=== PATIENT | male | born 1945 | race Caucasian/White ===

== ENCOUNTER 2024-01-16 22:34 | Emergency (ER) | payer OTHER, MEDICARE ==
[2024-01-16] MEDS ORDERED: methocarbamoL 750 MG TAB ONE (23:29)
[2024-01-16] MEDS ORDERED: ONDANSETRON 4 MG/2 ML VIAL ONE (23:29)
[2024-01-16] MEDS ORDERED: TDAP (DIPHTH,PERTUSS(ACELL),TET VAC) 0.5 ML VIAL IMVAC ONE (23:30)
[2024-01-16] MEDS ORDERED: MORPHINE 4 MG/ML SYR ONE (23:30)
[2024-01-17] MEDS ORDERED: MORPHINE 2 MG/ML SYR ONE (01:30)
[2024-01-17 01:40] LABS: Absolute Eosinophils 0.1 K/uL (0-0.5); Absolute Lymphocytes (CBC) 1.4 K/uL (0.7-4.9); Absolute Monocytes 1.1 K/uL (0.1-1.3); Absolute Neutrophil 13.3 K/uL (1.8-8.0); Basophils % 0.3 % (0-1.3); Eosinophils % 0.5 % (0-4.4); Hematocrit 52.1 % (39.6-49.0); Hemoglobin 16.7 g/dL (13.6-17.9); Lymphocytes % 8.7 % (15.3-44.8); MCH 30.6 pg (27.0-35.0); MCHC 32.1 g/dL (32.0-36.0); MCV 95.1 fL (80-100); MPV 9.5 fL (7.6-11.3); Monocytes % 7.1 % (3.3-12.3); Neutrophils % 83.4 % (41.7-73.7); Platelets 229 thou/uL (152-406); RBC Red Blood Cell Count 5.48 M/uL (4.33-5.43); Red Cell Distribution Width 14.3 % (12.1-15.2)
[2024-01-17 01:45] LABS: PT Prothrombin Time 13.1 SECONDS (9.4-12.5); Protime INR 1.18
[2024-01-17 02:00] LABS: Albumin 3.6 g/dL (3.4-5.0); Albumin/Globulin Ratio 0.7 (1.1-1.8); Anion Gap 10.2 mEq/L (5.0-15.0); Bilirubin Direct 0.2 mg/dL (0-0.2); Bilirubin Indirect, Calculated 0.5 mg/dL (0.2-0.8); Bilirubin Total 0.7 mg/dL (0.2-1.0); Globulin 5.1 g/dL (2.3-3.5); Magnesium 2.1 mg/dL (1.6-2.4); Potassium 4.2 mEq/L (3.5-5.1); Protein, Total 8.7 g/dL (6.4-8.2); Troponin High Sensitivity 17.3 pg/mL (<58.9)
--- NOTE | 2024-01-17 02:05 | ER ---
Nurse's Notes [facility] Name: Andrew Head Age: 78 yrs Sex: Male : 1945 Arrival Date: 01/16/2024 Time: 22:34 Bed 7 Private MD: Diagnosis: Acute nondisplaced fracture greater trochanter of the right femur, acute fall at home. Presentation: 01/15 22:36 Chief complaint: Patient states: I loss my balance in the bathroom and fell. EMS bm8 states: pt stated that he hit his head with no loc, right elbow skin tear, pain in right hip femur area, and fresh bruising to right knee. Coronavirus screen: At this time, the client does not indicate any symptoms associated with coronavirus-19. Ebola Screen: Patient negative for fever greater than or equal to 101.5 degrees Fahrenheit, and additional compatible Ebola Virus Disease symptoms Patient denies exposure to infectious person. Patient denies travel to an Ebola-affected area in the 21 days before illness onset. No symptoms or risks identified at this time. Initial Sepsis Screen: Does the patient meet any 2 criteria? No. Patient's initial sepsis screen is negative. Does the patient have a suspected source of infection? No. Patient's initial sepsis screen is negative. Risk Assessment: Do you want to hurt yourself or someone else? Patient reports no desire to harm self or others. Onset of symptoms was January 16, 2024 at 21:15. 22:36 Method Of Arrival: EMS: [facility] bm8 22:36 Acuity: GLORY 3 bm8 Triage Assessment: 22:38 General: Appears in no apparent distress. uncomfortable, Behavior is calm, cooperative, bm8 appropriate for age. Pain: Complains of pain in right arm and right leg Pain does not radiate. Pain currently is 8 out of 10 on a pain scale. Quality of pain is described as aching, crampy, Pain began 1 hour ago. EENT: No signs and/or symptoms were reported regarding the EENT system. Neuro: No deficits noted. Level of Consciousness is awake, alert, obeys commands, Oriented to person, place, time, situation, Appropriate for age. Cardiovascular: Denies chest pain, lightheadedness, shortness of breath, Heart tones S1 S2 present Capillary refill < 3 seconds Patient's skin is warm and dry. Respiratory: No deficits noted. Airway is patent Respiratory effort is even, unlabored, Respiratory pattern is regular, symmetrical, Breath sounds are clear bilaterally. GI: No signs and/or symptoms were reported involving the gastrointestinal system. : No signs and/or symptoms were reported regarding the genitourinary system. Derm: Wound noted right antecubital area Wound is skin tear. Musculoskeletal: Capillary refill < 3 seconds, in bilateral fingers. toes. Range of motion: limited in right hip Reports pain in medial aspect of right thigh and right quadriceps. Historical: - Allergies: 22:38 No Known Allergies; bm8 - Home Meds: 22:38 Eliquis oral [Active]; bm8 - PMHx: 22:38 diabetes mellitus; falls; HEART STENT; Hypercholesterolemia; Hypertensive disorder; bm8 Myocardial infarction; TIA; - PSHx: 22:38 right shoulder sx (TIA); heart stents (TIA); bm8 - Immunization history:: Adult Immunizations unknown, Adult Immunizations. - Infectious Disease History:: Denies. - Social history:: Smoking status: Patient denies any tobacco usage or history of. - Family history:: not pertinent. Screenin:42 [facility] ED Fall Risk Assessment (Adult) History of falling in the last 3 months, bm8 including since admission Yes- single mechanical fall (1 pt) Confusion or Disorientation No (0 pts) Intoxicated or Sedated No (0 pts) Impaired Gait No (0 pts) Mobility Assist Device Used No (0 pt) Altered Elimination No (0 pt) Score/Fall Risk Level 0 - 2 = Low Risk Oriented to surroundings, Maintained a safe environment, Educated pt \T\ family on fall prevention, incl call for assistance when getting out of bed, Assessed \T\ reinforced patient's understanding of fall precautions, Hourly rounding (assess needs \T\ fall precautionary measures) done, Used ambulatory aids as needed (educated on \T\ assisted with), Used gait belt as appropriate. Abuse screen: Denies threats or abuse. Nutritional screening: No deficits noted. Tuberculosis screening: No symptoms or risk factors identified. Assessment: 22:42 Reassessment: see triage note. bm8 23:43 Reassessment: Patient appears in no apparent distress at this time. No changes from bm8 previously documented assessment. Patient and/or family updated on plan of care and expected duration. Pain level reassessed. Patient is alert, oriented x 3, equal unlabored respirations, skin warm/dry/pink. 01/16 01:48 General: Appears in no apparent distress. comfortable, Behavior is calm, cooperative, bm8 appropriate for age. Pain: Complains of pain in right leg Pain currently is 4 out of 10 on a pain scale. Quality of pain is described as aching, crampy. Neuro: Level of Consciousness is awake, alert, obeys commands, Oriented to person, place, time, situation, Appropriate for age. Cardiovascular: Denies chest pain, Capillary refill < 3 seconds Patient's skin is warm and dry. Respiratory: Airway is patent Respiratory effort is even, unlabored, Respiratory pattern is regular, symmetrical, Breath sounds are clear bilaterally. GI: No signs and/or symptoms were reported involving the gastrointestinal system. : No signs and/or symptoms were reported regarding the genitourinary system. EENT: No signs and/or symptoms were reported regarding the EENT system. Musculoskeletal: Reports pain in right leg. 04:35 General: report given to JONATHAN WORTHY. bm8 Vital Signs: 01/15 22:36 BP 145 / 95; Pulse 75; Resp 18; Temp 97.7; Pulse Ox 95% ; Weight 90.26 kg; Height 6 ft. bm8 0 in. ; Pain 8/10; 23:52 BP 141 / 70; Pulse 76; Resp 17; Temp 98; Pulse Ox 95% ; Pain 5/10; bm8 01/16 01:48 BP 124 / 74; Pulse 85; Resp 17; Temp 98; Pulse Ox 96% on 2 lpm NC; Pain 4/10; bm8 02:30 BP 129 / 78; Pulse 87; Resp 18; Pulse Ox 95% ; cp4 03:30 BP 132 / 76; Pulse 87; Resp 18; Pulse Ox 96% ; cp4 03:30 BP 128 / 75; Pulse 90; Resp 17; Temp 98; Pulse Ox 96% ; cp4 04:31 BP 128 / 75; Pulse 90; Resp 17; Temp 98; Pulse Ox 96% ; cp4 01/15 22:36 Body Mass Index 26.99 (90.26 kg, 182.88 cm) bm8 01/15 22:36 Pain Scale: Adult bm8 23:52 Pain Scale: Adult bm8 01/16 01:48 Pain Scale: Adult bm8 Frannie Coma Score: 01/15 22:42 Eye Response: spontaneous(4). Motor Response: obeys commands(6). Verbal Response: bm8 oriented(5). Total: 15. 23:43 Eye Response: spontaneous(4). Motor Response: obeys commands(6). Verbal Response: bm8 oriented(5). Total: 15. 23:52 Eye Response: spontaneous(4). Motor Response: obeys commands(6). Verbal Response: bm8 oriented(5). Total: 15. 01/16 01:48 Eye Response: spontaneous(4). Motor Response: obeys commands(6). Verbal Response: bm8 oriented(5). Total: 15. 01:53 Eye Response: spontaneous(4). Motor Response: obeys commands(6). Verbal Response: sp4 oriented(5). Total: 15. ED Course: 01/15 22:34 Patient arrived in ED. cp4 22:36 Zeferino Benjamin, RN is Primary Nurse. bm8 22:38 Triage completed. bm8 22:38 Arm band placed on right wrist. bm8 22:42 Paul Santamaria MD is Attending Physician. sp4 22:42 Patient has correct armband on for positive identification. Call light in reach. Side bm8 rails up X2. Client placed on continuous cardiac and pulse oximetry monitoring. NIBP monitoring applied. Pulse ox on. NIBP on. Door closed. Noise minimized. Warm blanket given. Pillow given. Verbal reassurance given. Head of bed elevated. 22:42 No provider procedures requiring assistance completed. bm8 23:40 Inserted saline lock: 22 gauge in left antecubital area, using aseptic technique. Blood bm8 collected. Flushed with 10 mL NS. Wound care: to skin tear located on right antecubital area and right elbow was cleaned with soap and water, Patient tolerated well. wrapped with kerlix and secured with coban. 01/16 00:02 CT Pelvis wo Cont In Process Unspecified. EDMS 00:19 Elbow Right 3 View XRAY In Process Unspecified. EDMS 00:19 Femur Right XRAY In Process Unspecified. EDMS 01:24 [facility] 01:53 XRAY Chest (1 view) In Process Unspecified. EDMS 04:30 Provided Education on: transfer. cp4 04:30 Patient transferred, IV remains in place. cp4 04:39 pt was accepted to [facility] room 935. Admin approval given by Sydney Del Rosario f \T\[id number]. Accepting Danielle Coffey \T\[id number]. number for nurse to nurse report [phone]. [facility] to transfer pt. Administered Medications: 01/15 23:33 Drug: Boostrix Tdap IM 0.5 ml IM once; as a single dose Route: IM; Site: left deltoid; 8 01/16 00:00 Follow up: Response: No adverse reaction 4 01/15 23:39 Drug: morphine IVP or IV 4 mg IVP once over 4 mins Route: IVP; Infused Over: 4 mins; bm8 Site: left antecubital; 01/16 00:00 Follow up: Response: No adverse reaction; Pain is decreased [facility] 01/15 23:39 Drug: Ondansetron IVP 4 mg IVP once; over 2 minutes Route: IVP; Site: left antecubital; 8 01/16 00:00 Follow up: Response: No adverse reaction 4 01/15 23:39 Drug: Methocarbamol PO 750 mg PO once Route: PO; 8 01/16 00:00 Follow up: Response: No adverse reaction 4 01:33 Drug: morphine IVP or IV 2 mg IVP once over 4 mins Route: IVP; Infused Over: 4 mins; cp4 Site: left antecubital; 01:51 Follow up: Response: No adverse reaction 8 02:31 Drug: NS 0.9% IV 1000 ml IV at 125 ml/hr continuous Route: IV; Rate: 125 ml/hr; Site: cp4 left antecubital; 04:29 Follow up: IV Status: Infusion continued upon transfer 4 04:24 Drug: morphine IVP or IV 4 mg IVP once over 4 mins Route: IVP; Infused Over: 4 mins; jj7 Site: left antecubital; 04:29 Follow up: Response: No adverse reaction 4 04:24 Drug: Ondansetron IVP 4 mg IVP once; over 2 minutes Route: IVP; Site: left antecubital; jj7 04:29 Follow up: Response: No adverse reaction cp4 Medication: 01/15 22:42 VIS not applicable for this client. bm8 Outcome: 01/16 02:04 ER care complete, transfer ordered by . sp4 04:30 Transferred by ground EMS to [facility], Transfer form completed. cp4 X-rays sent w/ patient. 04:30 Condition: stable 04:30 Instructed on the need for transfer, 04:32 Patient left the ED. cp4 Signatures: Dispatcher [employer] Dc Israel RN RN jj7 Paul Santamaria MD MD sp4 Angelina Martínez cp4 Margie Alarcon [facility] Zeferino Benjamin, RN RN bm8 Corrections: (The following items were deleted from the chart) 01/15 23:53 23:43 BP 128 / 96; Pulse 67bpm; Resp 18bpm; Pulse Ox 95%; Temp 98F; Pain 8/10, Adult; bm8 bm8
--- NOTE | 2024-01-17 02:05 | EDPHYS ---
Physician Documentation [facility] Name: Andrew Head Age: 78 yrs Sex: Male : 1945 Arrival Date: 01/16/2024 Time: 22:34 Bed 7 Private MD: ED Physician Paul Santamaria HPI: 01/15 22:42 This 78 yrs old Black Male presents to ER via EMS with complaints of Hip Pain. sp4 01/16 01:53 Sonido presents with acute fall at home associated with moderate to severe right hip sp4 pain. Patient could not get up to walk at home and ambulance was called . Patient at this time complains of moderate severe right hip pain also right elbow pain associated with right elbow abrasion. . 01:59 Patient's medications include daily fiber, Eliquis 5 mg twice daily, zolpidem 12 in the sp4 evening, bupropion 150 in the morning, finasteride 5 mg in the morning, sertraline 100 mg in the morning, folic acid 1 mg in the morning, pioglitazone 30 mg in the morning, lamotrigine 100 mg in the morning, duloxetine 60 mg in the morning, atorvastatin 40 mg in the evening, memantine 100 mg in the morning, aripiprazole 5 mg twice a day.. Historical: - Allergies: 01/15 22:38 No Known Allergies; bm8 - Home Meds: 22:38 Eliquis oral [Active]; bm8 - PMHx: 22:38 diabetes mellitus; falls; HEART STENT; Hypercholesterolemia; Hypertensive disorder; bm8 Myocardial infarction; TIA; - PSHx: 22:38 right shoulder sx (TIA); heart stents (TIA); bm8 - Immunization history:: Adult Immunizations unknown, Adult Immunizations. - Infectious Disease History:: Denies. - Social history:: Smoking status: Patient denies any tobacco usage or history of. - Family history:: not pertinent. ROS: 01/16 01:53 Constitutional: Negative for fever, chills, and weight loss, for acute fall , positive sp4 for acute right hip pain, positive for right elbow contusion, positive for right elbow skin tear All other systems are negative, Exam: 01:53 Constitutional: This is a well developed, well nourished patient who is awake, alert, sp4 and in no acute distress. Head/Face: Normocephalic, atraumatic. Eyes: Pupils equal round and reactive to light, extra-ocular motions intact. Lids and lashes normal. Conjunctiva and sclera are not injected. Cornea within normal limits. Periorbital areas with no swelling, redness, or edema. ENT: Nares patent. No nasal discharge, no septal abnormalities noted. Tympanic membranes are normal and external auditory canals are clear. Oropharynx with no redness, swelling, or masses, exudates, or evidence of obstruction, uvula midline. Mucous membranes moist. Neck: Trachea midline, no thyromegaly or masses palpated, and no cervical lymphadenopathy. Supple, full range of motion without nuchal rigidity, or vertebral point tenderness. Chest/axilla: Normal chest wall appearance and motion. Nontender with no deformity. No lesions are appreciated. Cardiovascular: Regular rate and rhythm with a normal S1 and S2. No gallops, murmurs, or rubs. Normal PMI, no JVD. No pulse deficits. Respiratory: Lungs have equal breath sounds bilaterally, clear to auscultation and percussion. No rales, rhonchi or wheezes noted. No increased work of breathing, no retractions or nasal flaring. Abdomen/GI: Soft, with normal bowel sounds. No distension or tympany. No guarding or rebound. No evidence of tenderness throughout. Back: No spinal tenderness. No costovertebral tenderness. Skin: Warm, dry with normal turgor. Normal color with no rashes, no lesions, and no evidence of cellulitis. MS/ Extremity: Pulses equal, no cyanosis. Neurovascular intact. Full, normal range of motion. Moderate to severe tenderness right lateral proximal hip, no deformity, patient not able to stand up. Reports moderate to severe pain on attempt to stand. Neuro: Awake and alert, GCS 15, oriented to person, place, time, and situation. Cranial nerves II-XII grossly intact. Motor strength 5/5 in all extremities. Sensory grossly intact. Psych: Awake, alert, with orientation to person, place and time. Behavior, mood, and affect are within normal limits 01:53 ECG was reviewed by the Attending Physician. EKG 0 144 atrial fibrillation rate 86, sp4 right bundle branch block. Vital Signs: 01/15 22:36 BP 145 / 95; Pulse 75; Resp 18; Temp 97.7; Pulse Ox 95% ; Weight 90.26 kg; Height 6 ft. bm8 0 in. ; Pain 8/; 23:52 BP 141 / 70; Pulse 76; Resp 17; Temp 98; Pulse Ox 95% ; Pain 5/10; bm8 01/16 01:48 BP 124 / 74; Pulse 85; Resp 17; Temp 98; Pulse Ox 96% on 2 lpm NC; Pain 08/25; bm8 02:30 BP 129 / 78; Pulse 87; Resp 18; Pulse Ox 95% ; cp4 03:30 BP 132 / 76; Pulse 87; Resp 18; Pulse Ox 96% ; cp4 03:30 BP 128 / 75; Pulse 90; Resp 17; Temp 98; Pulse Ox 96% ; cp4 04:31 BP 128 / 75; Pulse 90; Resp 17; Temp 98; Pulse Ox 96% ; cp4 01/15 22:36 Body Mass Index 26.99 (90.26 kg, 182.88 cm) bm8 01/15 22:36 Pain Scale: Adult bm8 23:52 Pain Scale: Adult bm8 01/16 01:48 Pain Scale: Adult bm8 Caesar Coma Score: 01/15 22:42 Eye Response: spontaneous(4). Motor Response: obeys commands(6). Verbal Response: bm8 oriented(5). Total: 15. 23:43 Eye Response: spontaneous(4). Motor Response: obeys commands(6). Verbal Response: bm8 oriented(5). Total: 15. 23:52 Eye Response: spontaneous(4). Motor Response: obeys commands(6). Verbal Response: bm8 oriented(5). Total: 15. 01/16 01:48 Eye Response: spontaneous(4). Motor Response: obeys commands(6). Verbal Response: bm8 oriented(5). Total: 15. 01:53 Eye Response: spontaneous(4). Motor Response: obeys commands(6). Verbal Response: sp4 oriented(5). Total: 15. MDM: 01/15 22:48 Patient medically screened. sp4 01/16 00:54 ED course: EXAM DESCRIPTION: Pelvis Wo Cont CLINICAL HISTORY: 78 years Male Fall , sp4 right hip pain. COMPARISON: None. TECHNIQUE: Images were obtained in axial, coronal and sagittal planes. No contrast administration. This exam was performed according to our departmental dose-optimization program which includes use of Automated Exposure Control, adjustment of the mA and/or kV according to patient size and/or use of iterative reconstruction technique. FINDINGS: Satisfactory articulation femoral heads bilaterally with acetabular regions. Comminuted nondisplaced fractures greater trochanteric region on the right. No additional fractures seen. No fracture or superior or inferior pubic rami bilaterally. No fractures left hip. No sacral fractures bilaterally. Degenerative changes sacroiliac joints bilaterally. No coccygeal fractures seen. Appendix within normal limits. No abnormal fluid collections within the pelvis. Enlarged prostate gland. IMPRESSION: Comminuted nondisplaced fractures greater trochanteric region on the right. No additional fractures seen. . ED course: EXAM DESCRIPTION: Pelvis Wo Cont CLINICAL HISTORY: 78 years Male Fall , right hip pain. COMPARISON: None. TECHNIQUE: Images were obtained in axial, coronal and sagittal planes. No contrast administration. This exam was performed according to our departmental dose-optimization program which includes use of Automated Exposure Control, adjustment of the mA and/or kV according to patient size and/or use of iterative reconstruction technique. FINDINGS: Satisfactory articulation femoral heads bilaterally with acetabular regions. Comminuted nondisplaced fractures greater trochanteric region on the right. No additional fractures seen. No fracture or superior or inferior pubic rami bilaterally. No fractures left hip. No sacral fractures bilaterally. Degenerative changes sacroiliac joints bilaterally. No coccygeal fractures seen. Appendix within normal limits. No abnormal fluid collections within the pelvis. Enlarged prostate gland. IMPRESSION: Comminuted nondisplaced fractures greater trochanteric region on the right. No additional fractures seen. . ED course: EXAM DESCRIPTION: Elbow Right 3 View CLINICAL HISTORY: 78 years Male Fall, right side elbow pain. COMPARISON: None. TECHNIQUE: 3 view study of the right elbow were performed. FINDINGS: Calcific densities adjacent to posterior olecranon. Findings may represent chip fractures however tendon calcification could also have this appearance. Normal bony mineralization. No erosive or lytic lesions seen. No posterior fat pad sign or evidence for joint effusion. IMPRESSION: Calcific densities adjacent to posterior olecranon. Chip fractures versus tendon calcification could have this appearance. Correlation with point tenderness needed for further characterization. . ED course: PROCEDURE: FEMUR RADIOGRAPH TWO VIEWS TECHNIQUE: Right femur radiographs, AP and lateral views. HISTORY: , , right hip pain, Bed Name: 7 COMPARISONS: None . FINDINGS: Fracture (s) and/or Dislocation(s): Nondisplaced fracture through the greater trochanter. Soft tissues: Vascular calcifications. Bone mineralization: Normal . Foreign bodies: None . IMPRESSION: Nondisplaced fracture through the greater trochanter. . 01:58 Data reviewed: vital signs, nurses notes, lab test result(s), EKG, radiologic studies, sp4 CT scan, plain films. 02:00 Differential diagnosis: hip fracture, intertrochanteric fracture, femoral neck sp4 fracture, femoral shaft fracture, bursitis, arthritis, strain. Data reviewed: EMS record, old medical records. Consideration of Admission/Observation Escalation of care including admission/observation considered. Management of patient was discussed with the following: Manufacturing Plant Technician: Discussed with Dr. Stanford with orthopedic surgery at [facility] ED course: Was discussed with Orthopedist at [facility] and accepted for transfer. 01/16 01:23 Order name: Basic Metabolic Panel; Complete Time: 02:15 sp4 01/16 01:23 Order name: CBC with Diff; Complete Time: 02:15 sp4 01/16 01:23 Order name: LFT's; Complete Time: 02:15 sp4 01/16 01:23 Order name: Magnesium; Complete Time: 02:15 sp4 01/16 01:23 Order name: NT PRO-BNP; Complete Time: 02:15 sp01/16 01:23 Order name: PT-INR; Complete Time: 02:15 sp4 01/16 01:23 Order name: Troponin HS; Complete Time: 02:15 sp4 01/15 23:10 Order name: CT Pelvis wo Cont 4 01/15 23:10 Order name: Elbow Right 3 View XRAY 4 01/15 23:10 Order name: Femur Right XRAY sp4 01/16 01:23 Order name: XRAY Chest (1 view) sp4 01/15 23:10 Order name: Wound Care; Complete Time: 23:43 sp4 01/16 01:23 Order name: Cardiac monitoring; Complete Time: 01:51 sp4 01/16 01:23 Order name: EKG - Nurse/Tech; Complete Time: 01:51 sp4 01/16 01:23 Order name: IV Saline Lock; Complete Time: 01:51 sp4 01/16 01:23 Order name: Labs collected and sent; Complete Time: sp4 01/16 01:23 Order name: O2 Per Protocol; Complete Time: sp4 01/16 01:23 Order name: O2 Sat Monitoring; Complete Time: sp4 01/16 02:18 Order name: NPO; Complete Time: 02:24 sp4 EC:53 Rate is 86 beats/min. Rhythm is irregularly irregular, A fib. QRS Lynn is Normal. QRS sp4 interval is prolonged. QT interval is normal. No Q waves. T waves are Normal. No ST changes noted. Clinical impression: No evidence of ischemia. Interpreted by me. Reviewed by me. Administered Medications: 01/15 23:33 Drug: Boostrix Tdap IM 0.5 ml IM once; as a single dose Route: IM; Site: left deltoid; 8 01/16 00:00 Follow up: Response: No adverse reaction 4 01/15 23:39 Drug: morphine IVP or IV 4 mg IVP once over 4 mins Route: IVP; Infused Over: 4 mins; 8 Site: left antecubital; 01/16 00:00 Follow up: Response: No adverse reaction; Pain is decreased 4 01/15 23:39 Drug: Ondansetron IVP 4 mg IVP once; over 2 minutes Route: IVP; Site: left antecubital; 8 01/16 00:00 Follow up: Response: No adverse reaction 4 01/15 23:39 Drug: Methocarbamol PO 750 mg PO once Route: PO; 8 01/16 00:00 Follow up: Response: No adverse reaction [facility] 01:33 Drug: morphine IVP or IV 2 mg IVP once over 4 mins Route: IVP; Infused Over: 4 mins; cp4 Site: left antecubital; 01:51 Follow up: Response: No adverse reaction [facility] 02:31 Drug: NS 0.9% IV 1000 ml IV at 125 ml/hr continuous Route: IV; Rate: 125 ml/hr; Site: cp4 left antecubital; 04:29 Follow up: IV Status: Infusion continued upon transfer [facility] 04:24 Drug: morphine IVP or IV 4 mg IVP once over 4 mins Route: IVP; Infused Over: 4 mins; jj7 Site: left antecubital; 04:29 Follow up: Response: No adverse reaction cp4 04:24 Drug: Ondansetron IVP 4 mg IVP once; over 2 minutes Route: IVP; Site: left antecubital; jj7 04:29 Follow up: Response: No adverse reaction cp4 Disposition Summary: 01/17/24 02:04 Transfer Ordered Notes: Transfer Location: [facility] sp4 Reason: Higher level of care sp4 Condition: Stable sp4 Problem: new sp4 Symptoms: have improved sp4 Accepting Physician: [facility] orthopedist Dr. Stanford(01/17/24 04:32) cp4 Diagnosis - Acute nondisplaced fracture greater trochanter of the right femur, acute fall at sp4 home. Forms: - Medication Reconciliation Form sp4 - SBAR form sp4 Signatures: Dispatcher [employer] EDDc Whitfield RN RN jj7 Paul Santamaria MD MD sp4 Angelina Martínez cp4 Zeferino Benjamin RN RN bm8 Corrections: (The following items were deleted from the chart) 01/15 23:10 23:10 Pelvis Wo Cont+CT.RAD.BRZ ordered. EDMS EDMS 23:10 23:10 Femur Right+RAD.RAD.BRZ ordered. EDMS EDMS 01/16 01:24 01:24 BASIC METABOLIC PANEL+C.LAB.BRZ ordered. EDMS EDMS 01:24 01:24 CBC+H.LAB.BRZ ordered. EDMS EDMS 01:24 01:24 HEPATIC FUNCTION+C.LAB.BRZ ordered. EDMS EDMS 01:24 01:24 MAGNESIUM+C.LAB.BRZ ordered. EDMS EDMS 01:24 01:24 PROBNP+C.LAB.BRZ ordered. EDMS EDMS 01:24 01:24 PROTIME (+INR)+COAG.LAB.BRZ ordered. EDMS EDMS 01:24 01:24 Troponin High Sensitivity+C.LAB.BRZ ordered. EDMS EDMS 01:24 01:24 Chest Single View+RAD.RAD.BRZ ordered. EDMS EDMS 04:32 02:[address] [facility] [address] Stanford sp4 cp4
[2024-01-17] MEDS ORDERED: NA CHLORIDE 0.9% 1,000 ML ONE (02:28)
[2024-01-17] MEDS ORDERED: MORPHINE 4 MG/ML SYR ONE (04:19)
[2024-01-17] MEDS ORDERED: ONDANSETRON 4 MG/2 ML VIAL ONE (04:19)
[2024-01-17 04:52] VITALS: TEMP 98
[2024-01-17 05:01] VITALS: BP 128/75; O2SAT 96
--- NOTE | 2024-01-18 13:28 | RAD REPORT ---
EXAM DESCRIPTION: Chest Single View CLINICAL HISTORY: Pre Operative COMPARISON: None. FINDINGS: 1 view(s) of the chest. Tubes and lines: Leads overlie the chest. Cardiomediastinal silhouette: Atherosclerotic calcification of thoracic aorta. Heart is not enlarged. Lungs: No consolidation, pneumothorax, or pleural effusion. Bones: No acute osseous abnormality. Degenerative change of the spine and shoulders. Upper abdomen: No abnormality identified. IMPRESSION: 1. No acute pulmonary process identified. Electronically signed by: Bud Wilkinson DO 01/17/2024 02:27 AM CDT RP [id number] Due to temporary technical issues with the PACS/Fluency reporting system, reports are being signed by the in house radiologist without review as a courtesy to ensure prompt reporting. The interpreting r adiologist is fully responsible for the content of the report.
--- NOTE | 2024-01-18 13:29 | RAD REPORT ---
EXAM DESCRIPTION: Elbow Right 3 View CLINICAL HISTORY: 78 years Male Fall, right side elbow pain. COMPARISON: None. TECHNIQUE: 3 view study of the right elbow were performed. FINDINGS: Calcific densities adjacent to posterior olecranon. Findings may represent chip fractures however tendon calcification could also have this appearance. Normal bony mineralization. No erosive or lytic lesions seen. No posterior fat pad sign or evidence f or joint effusion. IMPRESSION: Calcific densities adjacent to posterior olecranon. Chip fractures versus tendon calcifi cation could have this appearance. Correlation with point tenderness needed for further characterizat ion. Electronically signed by: Vidya Klein MD 01/17/2024 12:35 AM CDT RP Due to temporary technical issues with the PACS/Fluency reporting system, reports are being signed by the in house radiologist without review as a courtesy to ensure prompt reporting. The interpreting r adiologist is fully responsible for the content of the report.
--- NOTE | 2024-01-18 13:31 | RAD REPORT ---
EXAM DESCRIPTION: Pelvis Wo Cont CLINICAL HISTORY: 78 years Male Fall , right hip pain. COMPARISON: None. TECHNIQUE: Images were obtained in axial, coronal and sagittal planes. No contrast administration. T his exam was performed according to our departmental dose-optimization program which includes use of Automated Exposure Control, adjustment of the mA and/or kV according to patient size and/or use of it erative reconstruction technique. FINDINGS: Satisfactory articulation femoral heads bilaterally with acetabular regions. Comminuted no ndisplaced fractures greater trochanteric region on the right. No additional fractures seen. No fract ure or superior or inferior pubic rami bilaterally. No fractures left hip. No sacral fractures bilate rally. Degenerative changes sacroiliac joints bilaterally. No coccygeal fractures seen. Appendix within normal limits. No abnormal fluid collections within the pelvis. Enlarged prostate gla nd. IMPRESSION: Comminuted nondisplaced fractures greater trochanteric region on the right. No additiona l fractures seen. Electronically signed by: Vidya Klein MD 01/17/2024 12:39 AM CDT Due to temporary technical issues with the PACS/Fluency reporting system, reports are being signed by the in house radiologist without review as a courtesy to ensure prompt reporting. The interpreting r adiologist is fully responsible for the content of the report.
--- NOTE | 2024-01-18 13:31 | RAD REPORT ---
EXAM DESCRIPTION: FEMUR RADIOGRAPH TWO VIEWS TECHNIQUE: Right femur radiographs, AP and lateral views. CLINICAL HISTORY: Right hip pain, Bed Name: 7 COMPARISON: None . FINDINGS: Fracture (s) and/or Dislocation(s): Nondisplaced fracture through the greater trochanter . Soft tissues: Vascular calcifications. Bone mineralization: Normal . Foreign bodies: None . IMPRESSION: Nondisplaced fracture through the greater trochanter. Electronically signed by: Wilbert Hurst MD 01/17/2024 12:43 AM CDT Workstation: [id number] Due to temporary technical issues with the PACS/Fluency reporting system, reports are being signed by the in house radiologist without review as a courtesy to ensure prompt reporting. The interpreting r adiologist is fully responsible for the content of the report.
--- NOTE | 2024-01-19 12:44 | EKG ---
Test Date: 2024-01-17 Test Time: 01:44:38 Manager Adult: BENJAMIN MEASUREMENT RESULTS: Intervals: Rate: 86 OK: QRSD: 140 QT: 408 QTc: 488 [place]: P: OK: QRS: 41 T: 6 INTERPRETIVE STATEMENTS: Atrial fibrillation Right bundle branch block Possible Inferior infarct, age undetermined Abnormal ECG Compared to ECG 05/02/2014 20:44:01 Sinus bradycardia no longer present Myocardial infarct finding still present Electronically Signed On 01-19-24 12:40:40 CDT by Geovany Graves
== END 2024-01-17 04:32 | disposition short-term general hospital (02) ==
LOC: ER 22:34
DX: S72.114A Nondisplaced fracture of greater trochanter of right femur, initial encounter for closed fracture (principal); S50.311A Abrasion of right elbow, initial encounter; W18.30XA Fall on same level, unspecified, initial encounter; Y92.009 Unspecified place in unspecified non-institutional (private) residence as the place of occurrence of the external cause; Z79.01 Long term (current) use of anticoagulants; Z95.818 Presence of other cardiac implants and grafts
CPT/HCPCS: 96361; 93005; 85025; 80048; 36415; 83735; 85610; 80076; 84484; 83880; 72192; 71045; 73080; 73552; 96375; 96372; 96374; 99285; J2270; J2405 ×2; J7030

== ENCOUNTER 2024-02-19 20:28 | Emergency (ER) | payer OTHER, MEDICARE ==
--- NOTE | 2024-02-19 21:11 | RAD REPORT ---
EXAMINATION: XR RIGHT FEMUR CLINICAL INDICATION: . right hip pain after therapy RIGHT TECHNIQUE: Multiple views of the right femur were obtained. COMPARISON: 01/16/2024 FINDINGS: Hardware is present in the proximal right femur. No hardware loosening or infection. No ac barrow fracture seen. Moderate atherosclerosis.
--- NOTE | 2024-02-19 21:11 | RAD REPORT ---
EXAMINATION: XR RIGHT KNEE CLINICAL INDICATION: Male, 78 years old. [facility] Right knee pain Bed Name: 7 [facility] Right knee pain Bed Name: IW7 TECHNIQUE: Multiple views of the right knee were obtained. COMPARISON: No prior exam. FINDINGS: No bone or joint abnormality seen. Popliteal atherosclerosis.
--- NOTE | 2024-02-19 21:18 | RAD REPORT ---
EXAM: CT PELVIS WITHOUT CONTRAST HISTORY: [facility] right hip pain Bed: COMPARISON: 01/16/2024 TECHNIQUE: Multiple contiguous axial images were obtained and a CT of the pelvis with IV contrast. Sa gittal and coronal reformats were performed. One or more of the following dose reduction techniques were used: Automated exposure control, adjustment of the mA and/or kV according to patient size, and/ or iterative reconstruction. FINDINGS: No pelvic fractures are seen. Hardware is present in the proximal right femur. 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 Symmetric sacroiliac joints are present. Mild arthritic changes involve both hips. The visualized intrapelvic structures are unremarkable. Mild nonspecific inflammatory fat stranding i n the small bowel mesentery. The soft tissues surrounding the pelvis are unremarkable. IMPRESSION: No acute abnormality is seen. Hardware is present in the proximal right femur with fractu re lucency still present.
[2024-02-19] MEDS ORDERED: ONDANSETRON 4 MG/2 ML VIAL ONE (21:41)
[2024-02-19] MEDS ORDERED: MORPHINE 4 MG/ML SYR ONE (21:42)
[2024-02-19 21:48] LABS: Absolute Basophils 0.1 K/uL (0-0.5); Absolute Eosinophils 0.1 K/uL (0-0.5); Absolute Lymphocytes (CBC) 1.6 K/uL (0.7-4.9); Absolute Monocytes 0.7 K/uL (0.1-1.3); Absolute Neutrophil 8.3 K/uL (1.8-8.0); Basophils % 0.6 % (0-1.3); Eosinophils % 0.9 % (0-4.4); Hematocrit 43.5 % (39.6-49.0); Hemoglobin 14.3 g/dL (13.6-17.9); Lymphocytes % 15.2 % (15.3-44.8); MCH 31.2 pg (27.0-35.0); MCV 94.5 fL (80-100); MPV 8.4 fL (7.6-11.3); Monocytes % 6.6 % (3.3-12.3); Neutrophils % 76.7 % (41.7-73.7); Platelets 188 thou/uL (152-406); RBC Red Blood Cell Count 4.61 M/uL (4.33-5.43); Red Cell Distribution Width 15.2 % (12.1-15.2)
[2024-02-19 21:59] LABS: ALT/SGPT 35 U/L (16-61); AST/SGOT 24 U/L (15-37); Albumin 3.3 g/dL (3.4-5.0); Albumin/Globulin Ratio 0.7 (1.1-1.8); Alkaline Phosphatase 159 U/L (45-117); Anion Gap 7.7 mEq/L (5.0-15.0); BUN Blood Urea Nitrogen 23 mg/dL (7-18); Bicarbonate 26 mEq/L (21-32); Bilirubin Total 0.6 mg/dL (0.2-1.0); Globulin 4.5 g/dL (2.3-3.5); Glomerular Filtration Rate 51 ml/min (=/>90); Glucose Level 191 mg/dL (74-106); Potassium 3.7 mEq/L (3.5-5.1); Protein, Total 7.8 g/dL (6.4-8.2); Sodium Level 136 mEq/L (136-145)
[2024-02-19 22:00] LABS: C-Reactive Protein < 2.90 mg/L (<3.00)
--- NOTE | 2024-02-19 22:13 | RAD REPORT ---
EXAMINATION: US RIGHT LOWER EXTREMITY VENOUS DOPPLER CLINICAL INDICATION: right leg pain RIGHT TECHNIQUE: Complete bilateral duplex sonography of the RIGHT lower extremity veins was performed. The examination included compression for vein patency, color Doppler imaging and flow augmentation in response to distal compression of the distal external iliac, common femoral, femoral, popliteal, tibi al, and great and small saphenous veins. COMPARISON: No prior exam. FINDINGS: Duplex sonography testing of the veins of the RIGHT lower extremity was performed. Color flow imaging shows all veins to be compressible with [id number] color filling. Pulsatile and phasic flow is present within all lower extremity deep and superficial veins examined. IMPRESSION: There is no deep vein or superficial vein thrombosis.
--- NOTE | 2024-02-19 23:47 | ER ---
Nurse's Notes [facility] Name: Andrew Head Jr Age: 78 yrs Sex: Male : 1945 Arrival Date: 02/19/2024 Time: 20:28 Bed 2 Private MD: Ruben Marr E Diagnosis: Postoperative right hip pain, right hip and pelvis musculoskeletal pain Presentation: 02/18 20:40 Chief complaint: Patient states: right leg pain. Pt had fracture 3 weeks ago and over cm10 the last few days patient has had increased pain to right leg and hip. Pt also has swelling to right knee. Coronavirus screen: Client denies travel out of the [place] in the last 14 days. Ebola Screen: Patient denies travel to an Ebola-affected area in the 21 days before illness onset. No symptoms or risks identified at this time. Initial Sepsis Screen: Does the patient meet any 2 criteria? No. Patient's initial sepsis screen is negative. Does the patient have a suspected source of infection? No. Patient's initial sepsis screen is negative. Risk Assessment: Do you want to hurt yourself or someone else? Patient reports no desire to harm self or others. Onset of symptoms was February 19, 2024. 20:40 Method Of Arrival: Wheelchair cm10 20:40 Acuity: GLORY 3 cm10 Triage Assessment: 20:42 General: Appears in no apparent distress. comfortable, Behavior is calm, cooperative. cm10 Neuro: No deficits noted. Level of Consciousness is awake, alert, obeys commands, Oriented to person, place, time, situation, Appropriate for age. Respiratory: No deficits noted. Airway is patent Respiratory effort is even, unlabored, Respiratory pattern is regular, symmetrical. Historical: - Allergies: 20:41 No Known Allergies; cm10 - PMHx: 20:41 diabetes mellitus; diabetes mellitus; falls; HEART STENT; Hypercholesterolemia; cm10 Hypertensive disorder; Myocardial infarction; TIA; - PSHx: 20:41 Heart Stents; Right shoulder sx; Right hip; cm10 - Immunization history:: Adult Immunizations up to date. - Infectious Disease History:: Denies. - Social history:: Smoking status: Patient denies any tobacco usage or history of. - Family history:: not pertinent. Screenin:31 [facility] ED Fall Risk Assessment (Adult) History of falling in the last 3 months, al5 including since admission Yes- single mechanical fall (1 pt) Confusion or Disorientation No (0 pts) Intoxicated or Sedated No (0 pts) Impaired Gait Yes (1 pt) Mobility Assist Device Used Yes (1 pt) Altered Elimination No (0 pt) Score/Fall Risk Level 3 or more points = High Risk Oriented to surroundings, Maintained a safe environment, Provided non-skid footwear, Hourly rounding (assess needs \T\ fall precautionary measures) done, Utilized family, sitter, or virtual community health program coordinator as indicated. Abuse screen: Denies threats or abuse. Denies injuries from another. Nutritional screening: No deficits noted. Tuberculosis screening: No symptoms or risk factors identified. Assessment: 21:20 General: Appears in no apparent distress. Behavior is calm, cooperative. Pain: al5 Complains of pain in right knee. Neuro: Level of Consciousness is awake, alert, obeys commands, Oriented to person, place, time, situation. Cardiovascular: Capillary refill < 3 seconds Patient's skin is warm and dry. Respiratory: Airway is patent Respiratory effort is even, unlabored, Respiratory pattern is regular, symmetrical. GI: No signs and/or symptoms were reported involving the gastrointestinal system. : No signs and/or symptoms were reported regarding the genitourinary system. EENT: No signs and/or symptoms were reported regarding the EENT system. Derm: Skin is intact, Skin is pink, warm \T\ dry. normal. Musculoskeletal: Swelling present in right knee Reports pain in right knee. 22:31 Reassessment: Patient appears in no apparent distress at this time. No changes from al5 previously documented assessment. Patient and/or family updated on plan of care and expected duration. Pain level reassessed. Patient is alert, oriented x 3, equal unlabored respirations, skin warm/dry/pink. 23:00 Reassessment: STANDING WITH ASSISTANCE WITH MYSELF AND DR SANTAMARIA.. br2 Vital Signs: 20:40 BP 123 / 76; Pulse 89; Resp 18; Temp 98.1; Pulse Ox 97% on R/A; Weight 88.45 kg; Height cm10 6 ft. 0 in. ; Pain 8/10; 21:00 BP 135 / 78; Pulse 83; Resp 18 S; Pulse Ox 95% on R/A; br2 22:00 BP 129 / 73; Pulse 76; Resp 20 S; Pulse Ox 92% on R/A; br2 20:40 Body Mass Index 26.45 (88.45 kg, 182.88 cm) cm10 20:40 Pain Scale: Adult cm10 [place] Coma Score: 02/19 04:48 Eye Response: spontaneous(4). Motor Response: obeys commands(6). Verbal Response: sp4 oriented(5). Total: 15. ED Course: 02/18 20:29 Patient arrived in ED. am2 20:29 Ruben Marr MD is Private Physician. am2 20:33 [facility]. cp 20:34 Paul Santamaria MD is Attending Physician. cp 20:41 Triage completed. cm10 20:42 Arm band placed on Patient placed in waiting room. cm10 21:05 Femur Right XRAY In Process Unspecified. EDMS 21:06 Knee Right 3 View XRAY In Process Unspecified. EDMS 21:09 CT Pelvis wo Cont In Process Unspecified. EDMS 21:21 Carmen Alba, RN is Primary Nurse. al5 21:38 CBC with Diff Sent. ha1 21:38 CMP Sent. ha1 21:38 Inserted saline lock: 22 gauge in right antecubital area, using aseptic technique. ha1 Blood collected. Flushed with 10 mL NS. 22:06 Extremity Venous Uni Ltd US In Process Unspecified. EDMS 22:34 Patient has correct armband on for positive identification. Call light in reach. Side al5 rails up X2. Provided Education on: plan of care. 22:34 No provider procedures requiring assistance completed. al5 23:33 IV discontinued, intact, bleeding controlled, No redness/swelling at site. Pressure br2 dressing applied. 23:46 Ruben Marr MD is Referral Physician. sp4 Administered Medications: 21:42 Drug: Ondansetron IVP 4 mg IVP once; over 2 minutes Route: IVP; Site: right antecubital;ha1 02/19 00:27 Follow up: Response: No adverse reaction; Nausea is decreased al5 02/18 21:44 Drug: morphine IVP or IV 4 mg IVP once over 4 mins Route: IVP; Infused Over: 4 mins; ha1 Site: right antecubital; 02/19 00:27 Follow up: Response: No adverse reaction; Pain is decreased al5 02/18 23:43 CANCELLED (Physician Discretion): hydrocodone-acetaminophen5 mg-325 mg 2 tabs PO once sp4 23:43 CANCELLED (Physician Discretion): [id number] mg PO once sp4 02/19 00:27 CANCELLED (Physician Discretion): [id number] mg PO once al5 00:27 Not Given (Patient Refused): [id number] mg PO once al5 Medication: 02/18 22:34 VIS not applicable for this client. al5 Outcome: 23:33 Discharged to home via wheelchair, br2 23:33 Condition: improved 23:33 Discharge instructions given to patient, Instructed on discharge instructions, follow up and referral plans. Demonstrated understanding of instructions, follow-up care, medications, 23:47 Discharge ordered by . sp4 02/19 00:06 Patient left the ED. br2 Signatures: Dispatcher [employer] EDMS Ghanshyam Castro PA PA cp Moreno, Amanda am2 Taylor Castro RN RN ha1 Paul Santamaria MD MD sp4 Charlotte Rosenberg RN RN cm10 Carmen Alba RN RN al5 Katerin Weber RN RN br2 Corrections: (The following items were deleted from the chart) 02/18 22:31 22:29 General: Appears in no apparent distress. Behavior is calm, cooperative, al5 al5 : 22:29 Pain: Complains of pain in right knee al5 al5 : 22:29 Neuro: Level of Consciousness is awake, alert, obeys commands, Oriented to al5 person, place, time, situation, al5 31 22:29 Cardiovascular: Capillary refill < 3 seconds Patient's skin is warm and dry. al5 al5 : 22:29 Respiratory: Airway is patent Respiratory effort is even, unlabored, Respiratory al5 pattern is regular, symmetrical, al5 22:29 GI: No signs and/or symptoms were reported involving the gastrointestinal system. al5 al5 22:29 : No signs and/or symptoms were reported regarding the genitourinary system. al5al5 22:29 EENT: No signs and/or symptoms were reported regarding the EENT system. al5 al5 22:29 Derm: Skin is intact, Skin is pink, warm \T\ dry. normal, al5 ca5 22:29 Musculoskeletal: Swelling present in right knee Reports pain in right knee al5 [facility] 02/19 00:33 00:33 Patient left the ED. br2 br2
--- NOTE | 2024-02-19 23:47 | EDPHYS ---
Physician Documentation [facility]ly [facility] [place] Name: Andrew Head Jr Age: 78 yrs Sex: Male : 1945 Arrival Date: 02/19/2024 Time: 20:28 Bed 2 Private MD: Ruben Marr E ED Physician Paul Santamaria HPI: 02/18 23:43 This 78 yrs old Male presents to ER via Wheelchair with complaints of Hip sp4 Pain, Leg Pain - right, knee swelling. 02/19 04:45 78 year old male , status post Right hip repair at [facility] , presents with sp4 worsening right hip pain . 04:48 Right hip greater trochanter fracture repair done 01/17/[address] ORIF . Patient states he is doing physical therapy at home , but developed worsening right hip pain and difficulty with ambulation today. . Historical: - Allergies: 02/18 20:41 No Known Allergies; cm10 - PMHx: 20:41 diabetes mellitus; diabetes mellitus; falls; HEART STENT; Hypercholesterolemia; cm10 Hypertensive disorder; Myocardial infarction; TIA; - PSHx: 20:41 Heart Stents; Right shoulder sx; Right hip; cm10 - Immunization history:: Adult Immunizations up to date. - Infectious Disease History:: Denies. - Social history:: Smoking status: Patient denies any tobacco usage or history of. - Family history:: not pertinent. ROS: 02/19 04:48 Constitutional: Negative for fever, chills, and weight loss, positive Right hip pain sp4 and right leg pain with ambulation All other systems are negative, Exam: 04:48 Constitutional: This is a well developed, well nourished patient who is awake, alert, sp4 and in no acute distress. Head/Face: Normocephalic, atraumatic. Eyes: Pupils equal round and reactive to light, extra-ocular motions intact. Lids and lashes normal. Conjunctiva and sclera are not injected. Cornea within normal limits. Periorbital areas with no swelling, redness, or edema. ENT: Nares patent. No nasal discharge, no septal abnormalities noted. Tympanic membranes are normal and external auditory canals are clear. Oropharynx with no redness, swelling, or masses, exudates, or evidence of obstruction, uvula midline. Mucous membranes moist. Neck: Trachea midline, no thyromegaly or masses palpated, and no cervical lymphadenopathy. Supple, full range of motion without nuchal rigidity, or vertebral point tenderness. Chest/axilla: Normal chest wall appearance and motion. Nontender with no deformity. No lesions are appreciated. Cardiovascular: Regular rate and rhythm with a normal S1 and S2. No gallops, murmurs, or rubs. Normal PMI, no JVD. No pulse deficits. Respiratory: Lungs have equal breath sounds bilaterally, clear to auscultation and percussion. No rales, rhonchi or wheezes noted. No increased work of breathing, no retractions or nasal flaring. Abdomen/GI: Soft, with normal bowel sounds. No distension or tympany. No guarding or rebound. No evidence of tenderness throughout. Back: No spinal tenderness. No costovertebral tenderness. Skin: Warm, dry with normal turgor. Normal color with no rashes, no lesions, and no evidence of cellulitis. MS/ Extremity: Pulses equal, no cyanosis. Neurovascular intact. Full, normal range of motion. Ambulatory with Asssitance Neuro: Awake and alert, GCS 15, oriented to person, place, time, and situation. Cranial nerves II-XII grossly intact. Motor strength 5/5 in all extremities. Sensory grossly intact. Psych: Awake, alert, with orientation to person, place and time. Behavior, mood, and affect are within normal limits Vital Signs: 02/18 20:40 BP 123 / 76; Pulse 89; Resp 18; Temp 98.1; Pulse Ox 97% on R/A; Weight 88.45 kg; Height cm10 6 ft. 0 in. ; Pain 8/10; 21:00 BP 135 / 78; Pulse 83; Resp 18 S; Pulse Ox 95% on R/A; br2 22:00 BP 129 / 73; Pulse 76; Resp 20 S; Pulse Ox 92% on R/A; br2 20:40 Body Mass Index 26.45 (88.45 kg, 182.88 cm) cm10 20:40 Pain Scale: Adult cm10 Mckenzie Coma Score: 02/19 04:48 Eye Response: spontaneous(4). Motor Response: obeys commands(6). Verbal Response: sp4 oriented(5). Total: 15. MDM: 02/18 23:30 Patient medically screened. sp4 23:44 Data reviewed: vital signs, nurses notes, old medical records, radiologic studies, CT sp4 scan, doppler, plain films. ED course: EXAMINATION: US RIGHT LOWER EXTREMITYVENOUS DOPPLER CLINICAL INDICATION: right leg pain RIGHT TECHNIQUE: Complete bilateral duplex sonography of the RIGHT lower extremity veins was performed. The examination included compression for vein patency, color Doppler imaging and flow augmentation in response to distal compression of the distal external iliac, common femoral, femoral, popliteal, tibial, and great and small saphenous veins. COMPARISON: No prior exam. FINDINGS: Duplex sonography testing of the veins of the RIGHT lower extremity was performed. Color flow imaging shows all veins to be compressible with [id number] color filling. Pulsatile and phasic flow is present within all lower extremity deep and superficial veins examined. IMPRESSION: There is no deep vein or superficial vein thrombosis. . 23:45 ED course: EXAMINATION: XR RIGHT FEMUR CLINICAL INDICATION: . right hip pain after sp4 therapy RIGHT TECHNIQUE: Multiple views of the right femur were obtained. COMPARISON: 01/16/2024 FINDINGS: Hardware is present in the proximal right femur. No hardware loosening or infection. No acute fracture seen. Moderate atherosclerosis. . ED course: EXAMINATION: XR RIGHT KNEE CLINICAL INDICATION: Male, 78 years old. [facility] Right knee pain Bed Name: [address] MA[address] Right knee pain Bed Name: TECHNIQUE: Multiple views of the right knee were obtained. COMPARISON: No prior exam. FINDINGS: No bone or joint abnormality seen. Popliteal atherosclerosis. . ED course: EXAM: CT PELVIS WITHOUT CONTRAST HISTORY: [facility] right hip pain Bed: COMPARISON: 01/16/2024 TECHNIQUE: Multiple contiguous axial images were obtained and a CT of the pelvis with IV contrast. Sagittal and coronal reformats were performed. One or more of the following dose reduction techniques were used: Automated exposure control, adjustment of the mA and/or kV according to patient size, and/or iterative reconstruction. FINDINGS: No pelvic fractures are seen. Hardware is present in the proximal right femur. Ununited fracture involving the greater trochanter again seen.. Symmetric sacroiliac joints are present. Mild arthritic changes involve both hips. The visualized intrapelvic structures are unremarkable. Mild nonspecific inflammatory fat stranding in the small bowel mesentery. The soft tissues surrounding the pelvis are unremarkable. IMPRESSION: No acute abnormality is seen. Hardware is present in the proximal right femur with fracture lucency still present. . 02/19 04:50 Differential diagnosis: hip fracture, bursitis, arthritis, strain. sp4 04:50 Consideration of Admission/Observation Escalation of care including sp4 admission/observation considered. ED course: Patient is ambulatory with assistance, images normal , no acute findings, stable for discharge home. 02/18 20:43 Order name: CBC with Diff; Complete Time: 23:35 sp4 02/18 20:43 Order name: CMP; Complete Time: 23:35 sp4 02/18 20:43 Order name: CRP; Complete Time: 23:35 sp4 02/18 20:42 Order name: CT Pelvis wo Cont; Complete Time: 23:35 sp4 02/18 20:42 Order name: Femur Right XRAY; Complete Time: 23:35 sp4 02/18 20:42 Order name: Knee Right 3 View XRAY; Complete Time: 23:35 sp4 02/18 20:43 Order name: Extremity Venous Uni Ltd US; Complete Time: 23:35 sp4 02/18 20:43 Order name: IV Saline Lock; Complete Time: 21:38 sp4 02/18 20:43 Order name: Labs collected and sent; Complete Time: 21:38 sp4 Administered Medications: 02/18 21:42 Drug: Ondansetron IVP 4 mg IVP once; over 2 minutes Route: IVP; Site: right antecubital;ha1 02/19 00:27 Follow up: Response: No adverse reaction; Nausea is decreased al5 02/18 21:44 Drug: morphine IVP or IV 4 mg IVP once over 4 mins Route: IVP; Infused Over: 4 mins; ha1 Site: right antecubital; 02/19 00:27 Follow up: Response: No adverse reaction; Pain is decreased al5 02/18 23:43 CANCELLED (Physician Discretion): hydrocodone-acetaminophen5 mg-325 mg 2 tabs PO once sp4 23:43 CANCELLED (Physician Discretion): [id number] mg PO once sp4 02/19 00:27 CANCELLED (Physician Discretion): [id number] mg PO once al5 00:27 Not Given (Patient Refused): [id number] mg PO once al5 Disposition Summary: 02/19/24 23:47 Discharge Ordered Notes: Location: Home sp4 Problem: new sp4 Symptoms: have improved sp4 Condition: Stable sp4 Diagnosis - Postoperative right hip pain, right hip and pelvis musculoskeletal pain sp4 Followup: sp4 - With: Ruben Marr MD - When: 7 - 10 days - Reason: Recheck today's complaints Discharge Instructions: - Discharge Summary Sheet sp4 - Distal Femur Fracture Treated With ORIF, Care After sp4 Forms: - Patient Portal Instructions sp4 Signatures: Dispatcher [employer] EDMS Taylor Castro RN RN ha1 Paul Santamaria MD MD sp4 Charlotte Rosenberg RN RN cm10 Carmen Alba RN al5 Corrections: (The following items were deleted from the chart) 02/18 20:42 20:42 Femur Right+RAD.RAD.BRZ ordered. EDMS EDMS 20:43 20:43 CBC+H.LAB.BRZ ordered. EDMS EDMS 20:43 20:43 COMPREHENSIVE METABOLIC PANEL+C.LAB.BRZ ordered. EDMS EDMS 23:43 20:42 HYDROcodone-acetaminophen PO 5 mg-325 mg 2 tabs PO once ordered. sp4 sp4 23:43 20:42 Methocarbamol PO 1500 mg PO once ordered. sp4 sp4 02/19 00:27 02/18 20:43 Ibuprofen PO 400 mg PO once ordered. sp4 al5
[2024-02-20 00:59] VITALS: TEMP 98.1
[2024-02-20 01:02] VITALS: BP 129/73; O2SAT 92
== END 2024-02-20 00:33 | disposition home or self-care (01) ==
LOC: ER 20:28
DX: G89.18 Other acute postprocedural pain (principal); S72.111 Displaced fracture of greater trochanter of right femur; M79.18 Myalgia, other site
CPT/HCPCS: 85025; 36415; 80053; 86140; 72192; 73562; 73552; 93971; 96375; 96374; 99284; J2405